=== PATIENT | male | born 1950 | race Caucasian/White ===

== ENCOUNTER → 2018-12-16 | Outpatient (CLI) | payer OTHER ==
[~2018-12-16] VITALS: Ht 172.7 cm; Wt 90.7 kg
[~2018-12-16] MED LIST: CENTRUM SILVER1 EAC2 PO; LIPITOR 20 MG T20 M1 PO; LOSARTAN-HCTZ1 EAC1 PO; LOVAZA1000 MG PO; NEPHROCAPS SOFT1 CAP PO; NEXIUM40 MG PO; NORCO 5-325 TA1 EACH PO; PROBIOTIC1 EAC1 PO; VENOFER20 MG/ML IV
[2018-12-16 09:46] VITALS: BP 143/77
[2018-12-16 10:08] LABS: HEMATOCRIT 38.5 % (42.0-52.0); HEMOGLOBIN 13.1 gm/dL (14.0-18.0); MCHC 34.1 g/dL (28.0-37.0); RBC 4.23 mil/uL (4.50-6.00); RDW 21.8 % (10.5-14.5)
[2018-12-16 10:14] LABS: CALCIUM 8.7 mg/dL (8.5-10.1); CREATININE 0.8 mg/dL (0.7-1.3); POTASSIUM 3.8 mmol/L (3.5-5.1)
[2018-12-16 10:16] LABS: INR 1.2; PROTIME 12.1 Seconds (9.3-11.4)
--- NOTE | 2018-12-16 16:33 | EKG ---
[address] [address] ELECTROCARDIOGRAM REPORT Name: KARLA DEVINE III Room #: [facility] Cortés#: [id number] Admission: 12/16/18 Attend Phys: Dexter Denton Discharge: Date of : 50 Report #: [id number] THIS REPORT FOR: //name// [facility] Test Date: 2018-12-16 Test Time: 10:13:40 Pat Name: KARLA DEVINE Department: Room: Gender: M History Instructor: : 1950 Requested By: Dexter Denton Order Number: [id number] MD: Jairo Galicia Measurements Intervals [place] Rate: 72 P: 61 WV: 175 QRS: 9 QRSD: 98 T: 36 QT: 413 QTc: 453 Interpretive Statements Sinus rhythm Compared to ECG 07/09/2007 11:49:26 No significant changes Electronically Signed On 12-16-2018 16:33:03 POWDER [employer] by Jairo Galicia [email or web address] <ELECTRONICALLY SIGNED> By: Jairo Galicia MD 12/16/18 1633 1013 1013 MD MELISSA Iyer
--- NOTE | 2018-12-18 11:20 | CATHLAB ---
[facility] [address] [place] [address] INVASIVE PROCEDURE REPORT Name: NILSONKARLA GONZALES SHARI [facility] [id number] Admission: 12/16/18 Attend Phys: Dexter Serna Discharge: Date of : 50 Date of Service: 12/18/18 1119 Report #: [id number] THIS REPORT FOR: //name// APPROVED REPORT Study performed: 12/16/2018 11:49:02 Patient Details Patient Status: Out-Patient Room #: The patient is a 68 year-old male Event Personnel Dexter Denton Greens Cutter, Raad Rod RN, Lizzy Negro Partnoy, Nancy RTR, [employer], Monitor Procedures Performed Art Access - R femoral artery* Left Heart Cath w/or w/o Coronaries [id number] [facility] [id number] Initial Mod Sed Same Phys/QHP 5y [id number] supervision of conscious sedation Indication Valvular heart disease Procedure Narrative The Right Groin^ was infiltrated with 1% Lidocaine subcutaneous anesthesia. A PINNACLE 5FR Sheath #[id number] sheath was inserted into the RFA^. Coronary angiography was performed using coronary diagnostic catheters. The right coronary system was accessed and visualized with a JR4 catheter. The left coronary system was accessed and visualized with a JL4 catheter. Left ventricular/Aortic Valve gradient assessed via catheter pullback. Closure device was deployed with a 5 Fr MYNXGRIP 5F #[id number]. The patient tolerated the procedure well and there were no complications associated with the procedure. There was no hematoma. Intraoperative Conscious Sedation Sedation start time: 11:46 Case end Time: 12:06 Versed 2 mg [facility] [address] [place] [address] INVASIVE PROCEDURE REPORT Name: KARLA DEVINE III Room #: REG Moo#: [id number] Admission: 12/16/18 Attend Phys: Dexter Serna Discharge: Date of : 50 Date of Service: 12/18/18 1119 Report #: [id number] Fluoro Time: 1.30 minutes Dose: DAP 2386.90 cGycm2 340 mGy Contrast Type and Amount: Omnipaque 60 ml Coronary Angiography The patient's coronary anatomy is right dominant. Diagnostic Cath Left Main Moderate caliber vessel normal origin has a proximal taper less than 30%. Then continues and bifurcates into left anterior descending left circumflex. High-grade disease. LAD Small to moderate caliber type II vessel which courses in the anterior interventricular sulcus. There is luminal irregularities noted but no high-grade lesions are present as it proceeds in the anterior interventricular sulcus giving rise to septal and diagonal branches. In the distal portion of the mid LAD or proximal portion of the distal LAD there is a bending that occurs during systole which forms an eccentric narrowing only during systole. There is no underlying lesions present there. Does not appear to be flow-limiting. Diagonal 1 Small-caliber vessel has proximal irregularities of less than 50% not appear to be flow-limiting as it courses along the anterolateral wall Circumflex Her caliber vessel which courses in the AV groove giving rise to a marginal branch there is marginal branches without significant high-grade lesions. There is an early small insignificant marginal branch near the take of the circumflex proper noted. OM1 Essentially the bulk of this left circumflex is this vessel which is only luminal irregularities and no high-grade lesions present Right Coronary Moderate to large caliber vessel of normal origin. She is in the AV groove posteriorly. There is luminal irregularities present throughout its proximal and mid course with small RV marginal branches arising. The PDA then arises just a small caliber vessel and the RCA proper continues posteriorly giving rise to posterior wall [facility] [address] [place] [address] INVASIVE PROCEDURE REPORT Name: KARLA DEVINE III Room #: REG [facility]#: [id number] Admission: 12/16/18 Attend Phys: Dexter Serna Discharge: Date of : 50 Date of Service: 12/18/18 1119 Report #: [id number] branches which are small. No high-grade obstructive lesions are present R PDA More caliber vessel that courses in the posterior interventricular sulcus and there is an eccentric 50% lesion in its proximal third. This is quite focal and does not appear to be significantly flow-limiting. Luminal irregularities noted which are mild for the remainder of the posterior descending artery is a courses towards the apex Left Ventriculography Left Ventriculography was not performed. Hemodynamics The aortic pressure is 122/68 mmHg with a mean of 88 mmHg. The left ventricular pressure is 136/13 mmHg with a mean of mmHg. The left ventricular end diastolic pressure is 32 mmHg. Conclusion 1. Minimal nonobstructive coronary artery disease involving the posterior descending artery and the left anterior descending diagonal branch 2. Abnormal hemodynamics with slightly elevated left ventricular end-diastolic pressures Recommendations Cardiac Risk Reduction Program Valve Surgery <ELECTRONICALLY SIGNED> By: Dexter Denton MD 12/18/18 1119 1119 1119 Dexter Denton MD /INF
== END | disposition home or self-care (01) ==
LOC: CATH 08:09
PROVIDERS: Internal Medicine
DX: I25.10 Atherosclerotic heart disease of native coronary artery without angina pectoris (principal); I10 Essential (primary) hypertension; K21.9 Gastro-esophageal reflux disease without esophagitis; F32.9 Major depressive disorder, single episode, unspecified; E78.5 Hyperlipidemia, unspecified; G47.33 Obstructive sleep apnea (adult) (pediatric); E66.09 Other obesity due to excess calories; Z90.49 Acquired absence of other specified parts of digestive tract; Z87.19 Personal history of other diseases of the digestive system; Z79.899 Other long term (current) drug therapy; Z98.890 Other specified postprocedural states; Z87.891 Personal history of nicotine dependence; Z82.49 Family history of ischemic heart disease and other diseases of the circulatory system

== ENCOUNTER → 2020-04-06 | Outpatient (CLI) | payer OTHER | LOC: SJCVC 14:07 | PROVIDERS: ATTEND Internal Medicine | DX: R94.31 Abnormal electrocardiogram [ECG] [EKG] (principal); I34.0 Nonrheumatic mitral (valve) insufficiency; E78.5 Hyperlipidemia, unspecified; I10 Essential (primary) hypertension; I25.10 Atherosclerotic heart disease of native coronary artery without angina pectoris; E66.9 Obesity, unspecified; Z82.49 Family history of ischemic heart disease and other diseases of the circulatory system; Z79.899 Other long term (current) drug therapy; Z87.891 Personal history of nicotine dependence ==

== ENCOUNTER → 2020-04-26 | Outpatient (CLI) | payer OTHER ==
--- NOTE | 2020-04-26 12:48 | 2DMMODE ---
[facility] [address] [place] [address] 2 D/M-MODE ECHOCARDIOGRAM Name: KARLA DEVINE III Room #: [facility] Cortés#: [id number] Admission: 04/26/20 Attend Phys: Dexter Denton Discharge: Date of : 50 Report #: [id number] THIS REPORT FOR: cc: Jules Mcclain Damon DO Lammoglia,Dexter Galvez MD ~ APPROVED REPORT Study performed: 04/26/2020 11:24:52 EXAM: Comprehensive 2D, Doppler, and color-flow Echocardiogram Patient Location: Out-Patient Room #: Echo lab 1 Status: routine BSA: 2.07 HR: 78 bpm BP: 122/68 mmHg Rhythm: NSR Other Information Study Quality: Excellent Indications Mitral Valve Disease Mitral Valve Prolapse 2D Dimensions RVDd: 34.92 mm IVSd: 9.70 (7-11mm) LVOT Diam: 22.67 (18-24mm) LVDd: 62.71 mm PWd: 10.86 (7-11mm) Ascending Ao: 28.97 (22-36mm) LVDs: 43.45 (25-40mm) Aortic Root: 31.83 mm IVC: 24.00 mm Volumes Left Atrial Volume (Systole) Single Plane 4CH: 88.23 mL Single Plane 2CH: 133.88 mL LA ESV Index: 57.00 mL/m2 Aortic Valve AoV Peak Adrian.: 1.94 m/s AO Peak Gr.: 15.13 mmHg LVOT Max P.22 mmHg LVOT Max V: 1.25 m/s MARY Vmax: 2.59 cm2 [facility] [address] [address] 2 D/M-MODE ECHOCARDIOGRAM Name: KARLA DEVINE III Room #: REG [facility]#: [id number] Admission: 04/26/20 Attend Phys: Dexter Serna Discharge: Date of : 50 Report #: [id number] Mitral Valve MV Peak Gr.: 22.15 mmHg MV Mean Gr.: 8.78 mmHg E/A Ratio: 1.7 MV Decel. Time: 258.49 ms MV E Max Adrian.: 1.91 m/s MV A Adrian.: 1.13 m/s MV Max Adrian.: 2.35 m/s MV Mean Adrian.: 1.42 m/s MV VTI: 556.14 mm MV PHT: 74.96 ms MVA (PHT): 2.46 cm2 IVRT: 59.98 ms Pulmonary Valve PV Peak Adrian.: 1.16 m/s PV Peak Gr.: 5.38 mmHg Pulmonary Vein P Vein S: 0.96 m/s P Vein A: 0.32 m/s P Vein D: 1.12 m/s P Vein A Dur.: 83.0 msec P Vein S/D Ratio: 0.86 Tricuspid Valve TR Peak Adrian.: 2.99 m/s TR Peak Gr.: 35.69 mmHg PA Pressure: 45.00 mmHg Left Ventricle Left ventricle is dilated. There is normal LV segmental wall motion. There is normal left ventricular wall thickness. The left ventricular systolic function is normal. The left ventricular ejection fraction is within the normal range. LVEF is 55-60%. The left ventricular diastolic function is normal. Right Ventricle The right ventricle is normal size. The right ventricular systolic function is normal. Atria Left atrium is dilated. The right atrium size is normal. Aortic Valve The aortic valve is normal in structure. The Aortic valve is sclerotic. No aortic regurgitation is present. There is no aortic valvular stenosis. [address] [address] 2 D/M-MODE ECHOCARDIOGRAM Name: [facility]INEKARLA [facility] Room #: REG [facility]#: [id number] Admission: 04/26/20 Attend Phys: Dexter Serna Discharge: Date of : 50 Report #: [id number] Mitral Valve The anterior mitral valve appears normal in structure. Moderate to severe mitral regurgitation Mitral regurgitation jet is eccentrically directed. No evidence of mitral valve stenosis. Severe prolapse of the posterior mitral valve leaflet. Tricuspid Valve The tricuspid valve is normal in structure. There is trace tricuspid regurgitation. Estimated PAP 45 mmHg. There is moderate pulmonary hypertension. Pulmonic Valve The pulmonary valve is normal in structure. Trace pulmonic regurgitation. Great Vessels The aortic root is normal in size. IVC is dilated and collapses >50% with inspiration. Pericardium There is no pericardial effusion. Pleural effusion is noted. <Conclusion> Left ventricle is dilated. LVEF is 55-60%. Left atrium is dilated. The aortic valve is normal in structure. The Aortic valve is sclerotic. The anterior mitral valve appears normal in structure. Severe prolapse of the posterior mitral valve leaflet. Moderate to severe mitral regurgitation Mitral regurgitation jet is eccentrically directed. The tricuspid valve is normal in structure. There is trace tricuspid regurgitation. Estimated PAP 45 mmHg. There is moderate pulmonary hypertension. The pulmonary valve is normal in structure. Trace pulmonic regurgitation. There is no pericardial effusion. <ELECTRONICALLY SIGNED> By: Dexter Denton MD 04/26/20 1246 1246 1246 Dexter Denton MD /INF
== END ==
LOC: CV 04-19 16:37
PROVIDERS: ATTEND Internal Medicine
DX: I08.0 Rheumatic disorders of both mitral and aortic valves (principal)

== ENCOUNTER → 2021-07-19 | Outpatient (CLI) | payer OTHER | LOC: SJCVCIMAG 10:36 | PROVIDERS: ATTEND Internal Medicine | DX: I08.1 Rheumatic disorders of both mitral and tricuspid valves (principal) ==